=== PATIENT | female | born 1960 ===

== ENCOUNTER → 2023-09-16 | Outpatient (CLI) | payer OTHER ==
[~2023-09-16] MED LIST: BUSP5 PO; CEPH500 PO; CITA20 PO; HYDACE5 PO; Keflex500 MG PO; METPHE20 PO; NAPR500 PO; Norco 5-325 Ta1 EACH PO; TOBR.3OPO LEFTEYE
== END ==
LOC: LAB SHORT 12:30 → LAB 12:30
DX: R53.83 Other fatigue (principal)
CPT/HCPCS: 84443